=== PATIENT | female | born 1955 | race Caucasian/White ===

== ENCOUNTER → 2019-02-08 14:21 | Outpatient (CLI) | payer BC, SELFPAY ==
[2019-02-05 09:19] VITALS: BMI 26.6
== END ==
PROVIDERS: Family Provider Student in an Organized Health Care Education/Training Program; PCP Student in an Organized Health Care Education/Training Program; Referring Provider Urology; Visit Provider Urology
DX: R30.0 Dysuria (principal)
CPT/HCPCS: 87077; 87086; 87088; 87186

== ENCOUNTER 2019-02-15 06:24 | Day surgery (SDC) | payer BC, SELFPAY ==
[2018-11-08 09:35] VITALS: BMI 26.7
[2019-02-05 09:19] VITALS: BMI 26.6
--- NOTE | 2019-02-10 08:04 | EKG12_ITS ---
Test Reason : PREOP Blood Pressure : / mmHG Vent. Rate : 065 BPM Atrial Rate : 065 BPM P-R Int : 134 ms QRS Dur : 062 ms QT Int : 410 ms P-R-T Axes : 015 041 051 degrees QTc Int : 426 ms Normal sinus rhythm Normal ECG Confirmed by FREDDY BRASHER, CUONG ([id number]), index editor DARLINE CANELA ([id number]) on 02/13/2019 11:14:27 AM Referred By: Mesha Dupree Confirmed By:CUONG HAYES MD
[2019-02-10 08:14] LABS: Prothrombin Time (Protime)PT. 12.5 SECONDS (11.7-14.9)
[2019-02-10 08:42] LABS: Partial Thromboplast Time 27.8 Seconds (24.1-36.2)
[2019-02-10 08:49] LABS: AST(SGOT) 19 U/L (15-37); Alanine Aminotransfer ALT/SGPT 25 U/L (13-56); Albumin, Serum 3.5 g/dL (3.2-5.0); Alkaline Phosphatase 91 U/L (45-117); Bilirubin, Direct 0.07 mg/dL (0.00-0.30); Globulin 3.1 g/dL (2.2-4.2); Protein, Total 6.6 g/dL (6.4-8.2); Thyroid Stim Hormone (TSH) 1.87 uIU/mL (0.358-3.74)
[2019-02-13 09:03] LABS: Anion Gap 8 (5-15); BUN 20 mg/dL (7-18); BUN/Creat Ratio 13.8 RATIO (10-20); Calcium,Total 9.1 mg/dL (8.5-10.1); Chloride 109 mmol/L (98-107); Creatinine, Serum 1.45 mg/dL (0.55-1.02); EST Glomerular Filtration Rate 39 mL/min (>60); Est Glom Filt Rate - Afr Amer 47 mL/min (>60); Glucose 89 mg/dL (74-106); Potassium 4.3 mmol/L (3.5-5.1); Sodium Level 141 mmol/L (136-145)
[2019-02-15] VITALS (12 sets, daily range): BP systolic 100–118; BP diastolic 55–67; PULSE 69–85; RESP 14–18; TEMP 36.3–36.7; O2SAT 97–100; BMI 26.4
--- NOTE | 2019-02-15 00:48 | PCM.HPOB.BLA ---
- Problem List (1) Uterovaginal prolapse, unspecified Status: Acute History and Physical Date of Admission: 02/15/19 Intake Vital Signs 02/05/19 Height 5 ft 2 in 02/05/19 Weight: 145 lb 6 oz 02/05/19 Body Mass Index (BMI) 26.6 02/05/19 Blood Pressure 144/82 H 02/05/19 Body Mass Index (BMI) 26.7 Intake Visit Reasons: Pre op ERAS Chief Complaint: pre op ERAS Circuit Court Clerk Required: No Is patient in pain?: No Allergies No Known Allergies Allergy (Verified 02/05/19 09:19) Medications levothyroxine 25 mcg tablet 25 mcg PO QDAY 11/02/17 [History Confirmed 02/05/19] Is last menstrual period known: No Post menopausal: Yes Patient : No : No [facility] Medical History Abnormal Pap smear of cervix (Acute) Thyroid disorder (Acute) Surgical History H/O oral surgery (Acute) Family History Mother Heart disease Father Diabetes Heart disease Social History (Updated 02/05/19 @ 11:04 by Mesha Dupree MD) Smoking Status: Never smoker alcohol intake: never substance use type: does not use caffeine: Yes what type of physical activity do you participate in: walking frequency: 1-2 times per week seatbelt use: always do you feel safe at home: Yes additional social history: Single- Fernanda Warren HPI Pre op ERAS: Details: FOZIA ALEXANDRA is a 63 year old who presents for incomplete uterovaginal prolapse planning a hysterectomy Pregancy History 1 Elective abortions Hx Para 1 Spontaneous abortions Hx # Term Pregnancies Ectopic pregnancies Hx # Pregnancies Multiple births # of living children Past Pregnancies Del. Date Name GA/Weeks Outcome Route Bth Weight Gen Labor Lgth Anesthesia Del Locatn Provider FOB Unknown Larisa 1981 live - full term ROS Const Constitutional: Denies fatigue, weight gain or weight loss Cardio Card: Denies chest pain Resp Resp: Denies cough or shortness of breath with activity GI GI: Denies abdominal pain, bloating, change in stools, constipation or vomiting : Reports as per HPI; denies difficulty urinating, pelvic pain, urinary frequency, urinary incontinence, urinary urgency, vaginal discharge or vaginal itching Exam Const General: cooperative, healthy appearing, no acute distress, well developed Orientation: alert, oriented to person, oriented to place [facility] Head: normal to inspection Neck Neck: normal visual inspection Thyroid: thyroid normal Lymphatic: no lymphadenopathy noted Chest Breast inspection: normal inspection of the breasts, normal inspection of the axillae Breast palpation: normal palpation of the breasts, normal palpation of the axillae, no axillary lymphadenopathy Resp Effort & Inspection: normal respiratory effort GI Palpation: soft, no masses, nontender Rectal Exam: deferred External Female Exam: normal external appearance, normal appearance of the urethra Urethra: normal appearance of the urethra Speculum Exam - Vagina: normal vaginal discharge, atrophic vaginal mucosa, other (cervix is prolapsed through vaginal introitus) Speculum Exam - Cervix: normal appearance of the cervix Bimanual Exam- Vagina & Uterus: normal bimanual exam, uterine size normal, uterine shape normal, uterus non-tender Bimanual Exam- Adnexa, other: normal adnexae, no adnexal masses, adnexae non-tender, cystocele, vaginal apex descent Pelvic Support: cystocele, vaginal apex descent Neuro General: alert, oriented x3 Psych Affect: normal affect Assessment & Plan Problems 1. Uterovaginal prolapse, unspecified N81.4 Plan discussed surgical risks including risks of anesthesia, infection, bleeding, injury to bowel, bladder or blood vessels, and patient wishes to proceed with surgery. Coding Level of Care Code No Charge Diagnoses Uterovaginal prolapse, unspecified N81.4
[2019-02-15 06:59] LABS: Hematocrit 46.8 % (37-47); Hemoglobin 15.1 g/dL (12.0-15.0); Mean Corp Hgb Conc 32.3 g/dL (32-36); Mean Corpuscular Hgb 30.3 pg (27.0-32.0); Mean Corpuscular Volume 93.8 fL (81-99); Mean Platelet Vol. 9.4 fl (6.2-12.0); Platelet Count 195 K/mm3 (150-450); RBC Distribution Width CV 11.9 % (11.6-14.6); RBC Distribution Width SD 41.2 fl (35.1-43.9); Red Blood Count 4.99 M/mm3 (4.2-5.4); White Blood Count 5.1 K/mm3 (4.4-11.0)
[2019-02-15] MEDS: dexAMETHasone 10 MG/ML Vial 8 MG IV (07:00)
[2019-02-15] MEDS: Scopolamine 1mg/72hr Patch 1 PATCH TRANSDERM. (07:28)
[2019-02-15] MEDS: Gabapentin 600 MG Tablet PO (07:28)
[2019-02-15] MEDS: Celecoxib 200 MG Capsule 400 MG PO (07:28)
[2019-02-15] MEDS: Acetaminophen 500 MG Tablet 1000 MG PO ×3 (07:28→21:48)
[2019-02-15] MEDS: Enoxaparin 40 MG/0.4 ML Syringe SC (07:29)
[2019-02-15] MEDS: Magnesium Sulfate 4gm/100mL 4 GM/100 ML IV.SOLN. IV (07:51)
[2019-02-15] MEDS: Lactated Ringers 1,000 ML 40 ML IV ×2 (07:52→13:30)
[2019-02-15 08:10] LABS: Bedside Glucose 104 mg/dL (70-110)
--- NOTE | 2019-02-15 08:51 | OP.PCM_ITS ---
Problem List (1) Stress bladder incontinence, female Status: Acute (2) Uterovaginal prolapse, unspecified Status: Acute Report of Operation Date of Procedure: 02/15/19 Pre-Operative Diagnosis: uterovaginal prolapse, stress incontinence. Post-Operative Diagnosis: same Surgery/Procedure Performed:: anterior and posterior repair, sacrospinous ligament fixation with Dermis, midurethral sling, cystoscopy Description of Surgical Findings:: 50cc blood loss, Dermis is flat, sling is flat, bilateral blue ureteral jets observed. no complications Type of Anesthesia:: General Estimated Blood Loss (mL): 50 Description of Procedure: The patient is a 63-year-old female with uterovaginal prolapse who presented to the office for definitive management. After discussing the risk benefits and alternatives, she agreed to proceed with surgical intervention with a hysterectomy and pelvic floor reconstruction. Informed consent was obtained. The patient was taken to the operating room and placed on the operating room table. Anesthesia monitored the head, neck, airway, IV access and vital signs throughout the case. Once anesthesia was appropriately administered the patient was prepped and draped in usual sterile fashion and was placed into dorsal lithotomy in Trendelenburg position. A Damon catheter was inserted in sterile fashion and Dr. Dupree proceeded with vaginal hysterectomy. Following closure of the cuff, the case was turned over to in for reconstruction. The anterior vaginal wall was injected submucosally with a cane with epinephrine. A midline vertical incision approximately 2 and half centimeters was made. Both blunt and sharp dissection was performed until the ischial spines were identified bilaterally and the sacrospinous ligaments were freed from surrounding tissues. The ureter was palpable lying across the ligament on the patient's left side. Care was taken to avoid manipulation of the tissue surrounding the ureter. At this time the Capio device was used to pass suture through the ligaments bilaterally which was then passed through the trimmed dermis and then through the apex of the vaginal mucosa. The dermis was then also laterally attached as to the white line with 2-0 Vicryl. The incision was closed with running 2-0 Vicryl in interlocking fashion. The sacrospinous ligaments were then tied in the apical support was in place. The posterior vaginal submucosa was injected with lidocaine with epinephrine and an incision was made. A perineoplasty and distal rectocele repair was performed using interrupted 2-0 Vicryl suture and the mucosa was then closed over in running interlocking fashion. At this time the mid urethra was identified and injected submucosally. A midline incision was made and dissection was performed on either side of the urethra. The trochars passed through the periurethral space into the obturator complexes bilaterally without difficulty. The mesh lie flat against the urethra without tension. The incision was closed with running interlocking 2-0 Vicryl. A cystourethroscopy revealed no evidence of trauma to the urinary bladder or urethra. Bilateral blue ureteral jets were observed. The Damon catheter was replaced and the vagina was packed with Premarin cream and vaginal packing. She was awakened and taken to the recovery room in good condition. There were no complications during the procedure. Grafts/Implants Used: [place] Dermis and Altis midurethral sling - Complications none - Admit VTE Documentation VTE Present on Admission: Yes VTE Mechan Device Prophylaxis: SCD's VTE Pharm Prophylaxis ordered?: Yes
--- NOTE | 2019-02-15 08:53 | DCINST_ITS ---
Discharge Diet: No Restrictions Discharge Activity: May not drive while taking narcotic pain medications., - - No lifting over 5 pounds, no exercise, no strenuous activity, no intercourse, no tub bathing and no swimming. May resume sexual activity in: 8 weeks Lifting Restrictions: 5 pounds Call your doctor if your incision/area has: Sudden Increased Bleeding, Foul Smelling Discharge Call your doctor if you observe: Fever of 101 or Higher, Inability to urinate, Inability to have a bowel movement, Shortness of breath, Chest pain, Calf discomfort, Uncontrolled pain Allergies/Adverse Reactions: Allergies No Known Allergies Allergy (Verified 02/08/19 09:46) Medications to take at Discharge levothyroxine 25 mcg tablet 25 mcg PO QDAY 11/02/17 Cholecalciferol (Vitamin D3) [Vitamin D3] 2,000 unit PO DAILY 02/08/19 Multivitamin [Multiple Vitamins] 1 ea PO DAILY 02/08/19 Sulfamethoxazole/Trimethoprim [Sulfamethoxazole-Tmp Ds Tablet] 1 ea PO BID 02/08/19 Orders to be completed after discharge: Type & Screen Time Frame: 02/08/19, Facility: [facility], Location: Laboratory 12 Lead EKG [[facility]] Time Frame: 02/08/19, Facility: [facility], Location: Cardiovascular Services Basic Metabolic Profile (BMP) Time Frame: 02/08/19, Facility: [facility], Location: Laboratory CBC-Complete Blood Cnt No Diff Time Frame: 02/08/19, Facility: [facility], Location: Laboratory Primary Care Physician: Danie Chaudhry DO [Primary Care Provider] - Test Results: Test results from this visit will be discussed in further detail at your follow- up appointment, if applicable. Please Follow Up With: Genet Dyer MD When: call for appt.
--- NOTE | 2019-02-15 11:30 | HYST_PTH ---
PATIENT: FOZIA ALEXANDRA LOC: [facility] [place] U#:[id number] AGE/SX: 63/F ROOM: RE02/15/[address]: Dr. Mesha Dupree MD : [id number] BED: DIS: 02/16/2019 SPEC #: [id number] RECD: 02/15/19 15:29 STATUS: KATIE AG #: [id number] KLEVER: 02/15/19 11:[address]: Mesha Dupree DEPT: SURGICAL PATHOLOGY RECD BY: Khang Boyle ENTERED: 02/16/19 08:32 SP TYPE: HYSTERECT OTHR DR: MD Dr. Danie Cutler DO Tissues: Uterus, NOS Procedures: Surgery Specimen Level V HEADER OPERATION: ERAS, vaginal hysterectomy PRE-OP DIAGNOSIS: Stress bladder incontinence; uterovaginal prolapse TISSUE SUBMITTED: Uterus MICROSCOPIC DIAGNOSIS Uterus, hysterectomy: Cervix - squamous metaplasia, hyperkeratosis and chronic inflammation. Endometrium - inactive endometrium with focal cystic change. Myometrium - superficial adenomyosis. AM:kim 02/19/19 MICROSCOPIC DESCRIPTION Slides are reviewed. GROSS DESCRIPTION Received in fixative is one container labeled with the patient's name and designated uterus. The specimen consists of a uterus with attached cervix without fallopian tubes and ovaries measuring 9.5 x 3.5 x 2.5 cm and weighing 44 gm. The ectocervix is unremarkable. The cervical os is oval in contour. The endocervical canal measures 5.5 cm in length and is grossly unremarkable. The triangular endometrial cavity measures 2.5 x 1.6 cm. The reddish-cehols endometrium measures <0.1 cm in thickness. The myometrium measures 1.2 cm in average thickness and is free of mass lesions. Construction Accountant sections are submitted in four cassettes as follows: 1 - anterior cervix, 2 - posterior cervix, 3 - anterior uterine wall, 4 - posterior uterine wall. / AM:kim 02/16/19 TC:3 CPT: 42378
[2019-02-15] MEDS: Cefazolin 2 GM in 0.9% Normal Saline 100 ML IV (11:35)
[2019-02-15] MEDS: Lubricating Jelly 60 GM Tube 30 GM TOPICAL (12:11)
--- NOTE | 2019-02-15 13:50 | PCM.OPRPT ---
Problem List (1) Uterovaginal prolapse, unspecified Status: Acute Report of Operation Date of Procedure: 02/15/19 Pre-Operative Diagnosis: uterovaginal prolapse Post-Operative Diagnosis: same Surgery/Procedure Performed:: tvh Description of Surgical Findings:: complete procidentia forestry extension specialist: Genet Dyer Type of Anesthesia:: General Special Medications: none Specimen's removed: uterus Drains: chow Estimated Blood Loss (mL): 100 Fluids Replaced: crystalloid Description of Procedure: Patient was taken to the operating room and was placed under general anesthesia was prepped and draped in normal sterile fashion in the dorsal lithotomy position. Preoperative antibiotics and SCDs and Chow catheter was placed inside the bladder. the anterior and posterior lip of the cervix was grasped with 2 Phong clamps and circumferentially injected with dilute vasopressin. A circumferential incision was made with a Bovie and sharp dissection was used to dissect the vaginal mucosa which was severely prolapsed off the cervix up to the level of the vesicouterine fold of peritoneum and the posterior cul-de-sac which were both entered into sharply. the uterosacral ligaments were clamped cut and suture ligated bilaterally followed by the cardinal ligaments which were Clamped cut and suture ligated bilaterally with 0 Monocryl. The uterus serially descended and progressive bites were taken bilaterally up to the level of the utero-ovarian ligament bilaterally which was clamped transected and double ligated with 0 Monocryl suture and 0 Vicryl free tie. Bilateral fallopian tubes and ovaries were difficult to visualize due to limited pelvic inlet access. They were noted to be within normal limits and due to risk of complication trying to remove they were left in the patient which had been previously discussed with her. Excellent hemostasis was noted. anterior and posterior peritoneum was reapproximated with 2-0 Vicryl. The vagina was closed with [id number] 0 Vicryl pop offs including the posterior and anterior peritoneum in the reapproximation. Excellent hemostasis was noted. All instruments removed from the vagina clear urine was noted at the end of the procedure. The next portion of the procedure was started with the other surgeon please see her operative note for details. Grafts/Implants Used: none - Complications none - Admit VTE Documentation VTE Present on Admission: No VTE Mechan Device Prophylaxis: SCD's VTE Pharm Prophylaxis ordered?: No Multi Select Codes - Urinary/Genital Urinary/Genital CPT Codes: 22336 TVH <250 gr uterus
[2019-02-15] MEDS: Vasopressin 20 UNITS/ML Vial (14:00)
[2019-02-15] MEDS: 0.9% NaCl Peripheral Flush Adult/Peds IV ×2 (18:02→19:06)
[2019-02-15] MEDS: Ketorolac 15 MG/ML Vial IV (18:03)
[2019-02-15] MEDS: Lactated Ringers 1,000 ML 70 ML IV (19:04)
[2019-02-15] MEDS: Cefazolin 1 GM/50 ML BAG IV (19:06)
[2019-02-15] MEDS: Docusate Sodium 100 MG Capsule PO (21:47)
[2019-02-15] MEDS: Smz/Tmp Ds Tablet 1 TABLET PO (21:48)
[2019-02-16 02:16] VITALS: BP 99/51; PULSE 82; RESP 18; TEMP 36.9; O2SAT 97
[2019-02-16] MEDS: Acetaminophen 500 MG Tablet 1000 MG PO ×2 (03:28→09:55)
[2019-02-16] MEDS: Cefazolin 1 GM/50 ML BAG IV (03:29)
[2019-02-16] MEDS: Levothyroxine 25 MCG TABLET PO (06:21)
[2019-02-16] MEDS: Ketorolac 15 MG/ML Vial IV ×2 (06:21)
[2019-02-16 06:30] LABS: Hematocrit 36.4 % (37-47); Hemoglobin 11.9 g/dL (12.0-15.0); Mean Corp Hgb Conc 32.7 g/dL (32-36); Mean Corpuscular Hgb 30.2 pg (27.0-32.0); Mean Corpuscular Volume 92.4 fL (81-99); Mean Platelet Vol. 9.4 fl (6.2-12.0); Platelet Count 184 K/mm3 (150-450); RBC Distribution Width SD 40.5 fl (35.1-43.9); Red Blood Count 3.94 M/mm3 (4.2-5.4); White Blood Count 11.2 K/mm3 (4.4-11.0)
[2019-02-16 08:15] VITALS: BP 112/63; PULSE 77; RESP 16; TEMP 36.9; O2SAT 99
[2019-02-16 09:00] VITALS: O2SAT 99
[2019-02-16] MEDS: Docusate Sodium 100 MG Capsule PO (09:55)
[2019-02-16] MEDS: Smz/Tmp Ds Tablet 1 TABLET PO (09:55)
[2019-02-16] MEDS: Enoxaparin 40 MG/0.4 ML Syringe SC (10:01)
[2019-02-16 10:45] LABS: Anion Gap 7 (5-15); BUN 15 mg/dL (7-18); BUN/Creat Ratio 13.9 RATIO (10-20); Calcium,Total 8.2 mg/dL (8.5-10.1); Chloride 110 mmol/L (98-107); Creatinine, Serum 1.08 mg/dL (0.55-1.02); EST Glomerular Filtration Rate 55 mL/min (>60); Est Glom Filt Rate - Afr Amer 66 mL/min (>60); Estimated Creatinine Clearance 43.26 ml/min; Glucose 128 mg/dL (74-106); Potassium 4.1 mmol/L (3.5-5.1); Sodium Level 143 mmol/L (136-145)
--- NOTE | 2019-02-16 11:57 | PCM.PN.OB ---
Subjective: patient recovering well, denies CP, SOB, N, or V. patient is ambulating, voiding ,tolerating adequate po, and pain is controlled with oral medications. - Physical Exam General: Alert, Oriented x3 Vital Signs Temp Pulse Resp BP Pulse Ox 98.4 F 77 16 112/63 99 02/16/19 08:15 02/16/19 08:15 02/16/19 08:15 02/16/19 08:15 02/16/19 09:00 Oxygen Flow Rate (L/min) 6 Oxygen Delivery Method Room Air Weight: 144 lb 13.499 oz Body Mass Index (BMI) 26.4 Intake and Output for Last 24 Hours 02/14/19 02/15/19 02/16/19 23:59 23:59 23:59 Intake Total 1512.66 / 1992.66 1682.50 / 1682.50 Output Total 140 / 290 1400 / 1400 Balance 1372.66 / 1702.66 282.50 / 282.50 Laboratory Tests Past 24 Hrs 02/16/19 02/16/19 02/16/19 06:15 10:10 10:10 WBC 11.2 H RBC 3.94 L Hgb 11.9 L 12.0 Hct 36.4 L MCV 92.4 MCH 30.2 MCHC 32.7 RDW Std Deviation 40.5 RDW Coeff of Kierra 12.0 Plt Count 184 MPV 9.4 Sodium 143 Potassium 4.1 Chloride 110 H Carbon Dioxide 26.0 Anion Gap 7 BUN 15 Creatinine 1.08 H Estim Creat Clear Calc 43.26 Est GFR (MDRD) Af Amer 66 Est GFR (MDRD) Non-Af 55 L BUN/Creatinine Ratio 13.9 Glucose 128 H Calcium 8.2 L Medical Necessity - Tobacco Use Smoking Status: Never smoker Tobacco Use: Non-smoker Assessment/Plan All Active Problems (Last Reviewed 02/05/19 @ 09:19 by Zoey Pleitez) Stress bladder incontinence, female (Acute) Uterovaginal prolapse, unspecified (Acute) patient is s/p total vaginal hysterectomy POD 1 1. routine ERAS protocol postop care- increase ambulation, encourage oral intake and oral control of pain. lovenox and scds for dvt prophylaxis, patient stable for discharge to home.
--- NOTE | 2019-02-16 11:57 | PCM.DC.LEE ---
Discharge Diet: No Restrictions Discharge Activity: May not drive while taking narcotic pain medications., - - No lifting over 5 pounds, no exercise, no strenuous activity, no intercourse, no tub bathing and no swimming. May resume sexual activity in: 8 weeks Call your doctor if your incision/area has: Sudden Increased Bleeding, Foul Smelling Discharge Call your doctor if you observe: Fever of 101 or Higher, Inability to urinate, Inability to have a bowel movement, Shortness of breath, Chest pain, Calf discomfort, Uncontrolled pain Allergies/Adverse Reactions: Allergies No Known Allergies Allergy (Verified 02/08/19 09:46) Medications to take at Discharge levothyroxine 25 mcg tablet 25 mcg PO QDAY 11/02/17 Cholecalciferol (Vitamin D3) [Vitamin D3] 2,000 unit PO DAILY 02/08/19 Multivitamin [Multiple Vitamins] 1 ea PO DAILY 02/08/19 Sulfamethoxazole/Trimethoprim [Sulfamethoxazole-Tmp Ds Tablet] 1 ea PO BID 02/08/19 Cephalexin [Keflex] 500 mg PO Q12 3 Days #6 cap 02/15/19 Naproxen [Naprosyn] 250 - 500 mg PO Q8H PRN PRN #30 tab 02/15/19 Oxycodone HCl/Acetaminophen [Percocet 5-325] 1 - 2 tab PO Q4H PRN PRN 7 Days #15 tab 02/15/19 The following prescriptions were given: Cephalexin [Keflex] 500 mg PO Q12 3 Days #6 cap Prescription Printed Naproxen [Naprosyn] 250 - 500 mg PO Q8H PRN PRN #30 tab PRN Reason: MILD PAIN Transmission Status: Received by [facility] Oxycodone HCl/Acetaminophen [Percocet 5-325] 1 - 2 tab PO Q4H PRN PRN 7 Days #15 tab PRN Reason: Pain Transmission Status: Received by [facility] Orders to be completed after discharge: Type & Screen Time Frame: 02/08/19, Facility: [facility], Location: Laboratory 12 Lead EKG [[facility]] Time Frame: 02/08/19, Facility: [facility], Location: Cardiovascular Services Basic Metabolic Profile (BMP) Time Frame: 02/08/19, Facility: [facility], Location: Laboratory CBC-Complete Blood Cnt No Diff Time Frame: 02/08/19, Facility: [facility], Location: Laboratory Primary Care Physician: Danie Chaudhry DO [Primary Care Provider] - Test Results: Test results from this visit will be discussed in further detail at your follow-up appointment, if applicable. Please Follow Up With: Genet Dyer MD When: call for appt.
[2019-02-16 13:00] VITALS: BP 120/61; PULSE 67; RESP 16; TEMP 36.4; O2SAT 99
== END 2019-02-16 13:10 | disposition home or self-care (01) ==
LOC: SDC 06:24 → AC 06:25 → MS3 11:39
PROVIDERS: Anesthesiology; Urology; Family Provider Student in an Organized Health Care Education/Training Program; PCP Student in an Organized Health Care Education/Training Program; Referring Provider Obstetrics & Gynecology; Visit Provider Obstetrics & Gynecology
PROC: (CPT 58260; principal; 2019-02-15 11:10)
PROC: (CPT 57260; 2019-02-15 11:10)
DX: N81.2 Incomplete uterovaginal prolapse (principal); E07.9 Disorder of thyroid, unspecified; N39.3 Stress incontinence (female) (male); N81.3 Complete uterovaginal prolapse; N88.0 Leukoplakia of cervix uteri; N80.0 Endometriosis of uterus
CPT/HCPCS: 57282; 57288; 58260; 36415; 80048; 80076; 82962; 84443; 85018; 85027; 85610; 85730; 86850; 86900; 86901; 88307; 93005; J7120; A4216; C1758; J2405; Q9968